=== PATIENT | female | born 1945 | race Caucasian/White ===

== ENCOUNTER 2021-11-20 08:17 | Outpatient (CLI) | payer MEDICARE | END 2021-11-20 23:59 | disposition short-term general hospital (02) | LOC: EMS 08:17 | DX: S89.92XA Unspecified injury of left lower leg, initial encounter (principal); M79.661 Pain in right lower leg; W01.0XXA Fall on same level from slipping, tripping and stumbling without subsequent striking against object, initial encounter; Y93.01 Activity, walking, marching and hiking; Y92.008 Other place in unspecified non-institutional (private) residence as the place of occurrence of the external cause; Z79.01 Long term (current) use of anticoagulants | CPT/HCPCS: A0425; A0427 ==